=== PATIENT | male | born 1990 | race Caucasian/White ===

== ENCOUNTER 2017-12-16 07:24 | Emergency (ER) | payer SELFPAY ==
[2017-12-16 07:50] VITALS: BP 141/94; PULSE 96; O2SAT 98
--- NOTE | 2017-12-16 07:58 | ERPHSYRPT ---
- History of Present Illness Time Seen by Provider: 12/16/17 07:41 Source: patient Exam Limitations: no limitations Physician History: The patient is a 27-year-old male with his girlfriend complaining of a worsening red mildly itchy rash on his forearms, abdomen, and legs since Wednesday. He was out in the du cutting trees a day before the rash started. 10 days ago he was started on a steroid Dosepak for left shoulder pain. He is now on a very minimal dose of steroid and the rash has been getting worse he saw his primary medical doctor 3 days ago and was placed on Keflex for the rash. Today the rash is worse. Girlfriend states that he is having trouble breathing and his throat is swelling. His past medical history possible. Timing/Duration: day(s) (5), gradual onset, worse Quality: itchy, other (red) Severity: moderate Location: torso (abd), extremities (forearms and thighs) Possible Causes: exposure to allergen Modifying Factors: Improves With: prednisone (low dose). Worsens With: antihistamine, topical steriods Associated Symptoms: rash - Review of Systems Constitutional: No Fever, No Chills Eyes: No Symptoms Ears, Nose, & Throat: No Symptoms Respiratory: No Cough, No Dyspnea Cardiac: No Chest Pain, No Edema, No Syncope Abdominal/Gastrointestinal: No Abdominal Pain, No Nausea, No Vomiting, No Diarrhea Genitourinary Symptoms: No Dysuria Musculoskeletal: No Back Pain, No Neck Pain Skin: Rash Neurological: No Dizziness, No Focal Weakness, No Sensory Changes Psychological: No Symptoms Endocrine: No Symptoms Hematologic/Lymphatic: No Symptoms Immunological/Allergic: No Symptoms All Other Systems: Reviewed and Negative - Physical Exam General Appearance: no apparent distress, alert Eye Exam: PERRL/EOMI, eyes nml inspection Ears, Nose, Throat Exam: normal ENT inspection, pharynx normal, moist mucous membranes, other (no edema of throat or tongue) Neck Exam: normal inspection, non-tender, supple, full range of motion Respiratory Exam: normal breath sounds, lungs clear, airway intact, No respiratory distress, No crackles/rales, No wheezing, No stridor Cardiovascular Exam: regular rate/rhythm, normal heart sounds Gastrointestinal/Abdomen Exam: soft, mass, No tenderness Rectal Exam: not done Back Exam: normal inspection, normal range of motion, No CVA tenderness, No vertebral tenderness Extremity Exam: normal inspection, normal range of motion Neurologic Exam: alert, oriented x 3, cooperative, normal mood/affect, sensation nml, No motor deficits Skin Exam: rash (confluent erythematous rash over medial aspect of bilateral forearms, on abdomen, and bllateral inner thighs.) SpO2 Interpretation: normal ( Is) Oxygen Delivery: Room Air - Progress Progress: unchanged Counseled pt/family regarding: diagnosis - Departure Time of Disposition: 08:04 Departure Disposition: Home Clinical Impression: Allergic reaction Condition: Stable Critical Care Time: No Additional Instructions: You have an allergic reaction but the exact cause of the reaction is unknown at this time. You were on a low dose of steroid but now I want to put you on a high dose of steroid. Take prednisone 60 mg daily for 5 days. Stop taking the other steroid Dosepak. You were placed on Keflex by your doctor and if you like , you can remain on the Keflex. Your lungs were clear. There was no swelling in your throat or mouth. Follow-up with your primary care provider or return to the ER if your condition worsens. Prescriptions: Prednisone 20 mg [Deltasone 20 mg] 3 tab PO DAILY #15 tablet
== END 2017-12-16 08:17 | disposition home or self-care (01) ==
LOC: ED 07:24
DX: T78.40XA Allergy, unspecified, initial encounter (principal)
CPT/HCPCS: 99283